=== PATIENT | female | born 1995 | race Caucasian/White ===

== ENCOUNTER 2021-01-03 21:48 | Emergency (ER) | payer MEDICAID, SELFPAY ==
[2021-01-03 21:50] VITALS: BP 159/86; PULSE 125; RESP 22; TEMP 36.2; O2SAT 93; BMI 31.0
--- NOTE | 2021-01-03 22:03 | ED.VIS.GEN ---
History of Present Illness Chief Complaint: Asthma Informant: Patient Onset: Yesterday Narrative: Worsening asthma since yesterday. She moved into a new apartment yesterday states there were cats there that aggravated this. States she is fine prior to moving in. She denies tobacco history. Denies cough. Denies fever. States ran out of her Ventolin called the pharmacy however they did not have the refill. She has been using her Symbicort multiple times. States feels tightness in her chest due to her asthma. Prior similar symptoms: Yes Past Medical History - Allergies and Home Meds Allergies/Adverse Reactions: Allergies CATS Allergy (Uncoded 01/03/21 21:49) Shortness of breath Past Medical History: - - Asthma Review of Systems General: Denies: Chills, Fever, Sweats Eyes: Denies: Visual changes - bilaterally, Diplopia ENT: Denies: Rhinorrhea, Sore throat Cardiovascular: Denies: Chest pain, Palpitations Respiratory: Reports: Dyspnea. Denies: Cough, Dyspnea on exertion Gastrointestinal: Denies: Abdominal pain, Nausea, Vomiting, Diarrhea, Melena, Hematochezia Genitourinary: Denies: Dysuria, Hematuria, Frequency Musculoskeletal: Denies: Back pain, Extremity Pain Skin: Denies: Rash, Wounds Neurological: Denies: Headache, Weakness, Numbness Physical Exam Vital Signs/Narrative: Vital Signs Temp Pulse Resp BP Pulse Ox 01/03/21 21:50 97.2 F L 125 H 22 H 159/86 H 93 General: Well nourished, Well developed, No Acute Distress Head: Normocephalic, Atraumatic Eyes: Perrl, EOMI ENT: Moist mucous membranes, No rhinorrhea Neck: Supple, Nontender Cardiovascular: Regular rhythm, No murmurs, Tachycardia Respiratory: Chest nontender, - - Diminished breath sounds at bases, no sensory muscle use. Abdomen: Soft, Nontender, Nondistended, Normal bowel sounds Back: Nontender, Normal Inspection Extremities: Nontender, No edema Skin: Normal color, No rash Neurological: Alert, Oriented x3, Cranial nerves II-XII grossly intact, Normal Strength, Normal Sensation Psychological: Normal affect, Normal Mood Diagnostic/Tx/Re-eval - Medical Decision Making Patient tachycardic on arrival pulse ox 93%. She is diminished breath sounds. Symptoms started after moving in to the new apartment. Denies fever cough or any other Covid symptoms. Should be treated with oral steroids nebulizer treatments and reevaluated. Patient signed out to evening physician to follow-up on patient's symptoms and vitals with plan discharge with rescue inhaler and burst steroids for 4 more days. ED Disposition - Plan for ED Patient: Diagnosis: Asthma exacerbation
[2021-01-03] MEDS: Ipratropium/Albuterol Sulfate 3 ML AMPUL.NEB INHALATION (22:04)
[2021-01-03 22:06] VITALS: PULSE 124; RESP 21
[2021-01-03] MEDS: Albuterol 2.5 MG/3 ML VIAL.NEB. INHALATION ×2 (22:28)
[2021-01-03] MEDS: predniSONE 20 MG Tablet 60 MG PO (22:29)
[2021-01-03 22:32] VITALS: O2SAT 94
[2021-01-03 22:34] VITALS: PULSE 119; RESP 15; O2SAT 100
--- NOTE | 2021-01-03 23:13 | ED.DCSUM_ITS ---
- ER Visit Summary Date of Service: 01/03/21 This patient was checked out to me with a period of observation pending after aerosols. Emergency Department Course and Treatment: On repeat exam patient reports that she feels much improved. She is moving air well. Her pulse ox is 100% on room air. She feels much improved and would like to go home. Treatment Plan: Patient will be discharged with an albuterol MDI. 5-day burst of prednisone. Instructed to follow-up with her primary care physician 1 to 2 days if not improving. Return to the emergency department for any worsening symptoms. Disposition: To home in improved and stable condition. Impression: 1. Asthma exacerbation. This note was generated with [employer] dictation software. It may contain incorrect words, spelling, and punctuation that were not noted in review of the chart prior to signing ED Disposition - Plan for ED Patient: Diagnosis: Asthma exacerbation Instructions: ED Asthma, Acute (Adult) Prescriptions: Prednisone [Deltasone] 40 mg PO DAILY #10 tablet Referrals: Doctor,Your [STAFF PHYSICIAN] - 1-2 Days if not improving
[2021-01-03 23:19] VITALS: BP 130/66; PULSE 111; RESP 18; O2SAT 100
== END 2021-01-03 23:22 | disposition home or self-care (01) ==
LOC: ED 23:20
PROVIDERS: Emergency Provider Emergency Medicine
DX: J45.901 Unspecified asthma with (acute) exacerbation (principal); Z79.51 Long term (current) use of inhaled steroids
CPT/HCPCS: 94640; 99284

== ENCOUNTER → 2021-02-06 09:53 | Outpatient (CLI) | payer MEDICAID, SELFPAY ==
[2021-02-06 11:51] LABS: Hemoglobin A1c 5.3 % (3.8-5.6)
[2021-02-06 11:59] LABS: Follicle Stimulating Hormone 5.4 mIU/mL; Luteinizing Hormone 9.3 mIU/mL; Prolactin 3.3 ng/mL; T4 Free Direct 1.06 ng/dL (0.76-1.46); Thyroid Stim Hormone (TSH) 0.59 uIU/mL (0.358-3.74)
[2021-02-10 03:07] LABS: DHEA Sulfate 77.3 ug/dL (110.0-431.7)
[2021-02-10 08:39] LABS: Testosterone Free 0.7 pg/mL (0.0-4.2)
== END ==
PROVIDERS: Visit Provider Student in an Organized Health Care Education/Training Program
DX: E28.2 Polycystic ovarian syndrome (principal); N92.6 Irregular menstruation, unspecified
CPT/HCPCS: 36415; 82627; 83001; 83002; 83036; 84146; 84402; 84439; 84443; 82626

== ENCOUNTER 2021-10-26 20:33 | Emergency (ER) | payer MEDICAID, SELFPAY ==
[2021-10-26 20:33] VITALS: BP 164/91; PULSE 120; RESP 20; TEMP 36.4; O2SAT 97; BMI 32.4
[2021-10-26 21:07] VITALS: PULSE 125; RESP 16
[2021-10-26] MEDS: Ipratropium/Albuterol Sulfate 3 ML AMPUL.NEB INHALATION (21:07)
[2021-10-26] MEDS: Albuterol 2.5 MG/3 ML VIAL.NEB. INHALATION (21:07)
[2021-10-26] MEDS: predniSONE 20 MG Tablet 60 MG PO (21:12)
--- NOTE | 2021-10-26 21:26 | CPS ---
x1 Albuterol given to pt. in ER as well
--- NOTE | 2021-10-26 21:30 | ED.VIS.DYS ---
HPI History of Present Illness Chief Complaint: Asthma Narrative Narrative: 26-year-old female with history of asthma presenting with shortness of breath. She states she had nasal congestion for over a month. Today she notes she has a mild sore throat and shortness of breath. She is been using her rescue inhaler and states this is not helping. She denies fever, chills, body aches, change in taste or smell. She has no known sick contacts. She denies chest pain. PFSH PFSH Home Medications albuterol sulfate 2 puff INHALATION Q4H PRN PRN 01/03/21 [History Last Taken Unknown] budesonide-formoterol 1 puff INHALATION BID 01/03/21 [History Last Taken Unknown] prednisone 40 mg PO DAILY #10 tab 01/03/21 [Rx Last Taken Unknown] prednisone 50 mg PO DAILY 5 Days #25 tab 10/26/21 [Rx Last Taken Unknown] Allergy/AdvReac Type Severity Reaction Status Date / Time CATS Allergy Shortness Uncoded 10/26/21 20:33 of breath Social History Smoking Status: Never smoker ROS ROS ED Constitutional Constitutional ED: Denies chills or fever(s) Eyes Eyes: Denies blurry vision ENT ENT ED: Reports sore throat and other Details: Nasal congestion Cardiovascular Cardiovascular: Denies chest pain or palpitations Respiratory/Chest Respiratory/Chest: Reports cough and dyspnea; Denies dyspnea on exertion or sputum Gastrointestinal Gastrointestinal: Denies abdominal pain, nausea or vomiting Genitourinary Genitourinary ED: Denies dysuria or hematuria Musculoskeletal Musculoskeletal: Denies arthralgias or myalgias Integumentary Denies rash Neurologic Neurologic: Denies headache(s) or paresthesias EXAM Physical Exam Const Vital Signs: 10/26/21 20:33 10/26/21 21:07 Temperature 97.6 F L Temperature Source Temporal Pulse Rate 120 H 125 H Respiratory Rate 20 H 16 Respiratory Pattern Normal Blood Pressure 164/91 H Blood Pressure Mean 115 Pulse Ox 97 Oxygen Delivery Method Room Air Positive well nourished General Appearance ED: NAD; Negative for pallor HEENT Reports moist mucous membranes atraumatic Eyes PERRL and EOMs intact bilaterally Resp normal respiratory effort and clear to auscultation bilaterally Cardio regular rhythm Rate: tachycardic Extremity normal to inspection General Extremety ED: Negative for edema or tenderness General Extremity: Negative for edema Neuro oriented x3 Sensorium / Orientation: alert Psych mental status grossly normal Thought Process: normal thought process Skin General Skin Exam: Negative for jaundice or pallor MDM MDM MDM Narrative Medical decision making narrative: Patient feels better after breathing treatments and she still has no wheezing. She would prefer to have prednisone as this is helped her in the past. I will provide this. She has an albuterol inhaler at home. Her Covid testing was negative here today. I do not believe this is viral syndrome as she only has a cough and congestion for a month without any other symptoms. Patient will be discharged home. He is given return precautions. Impression: 1. Cough Discharge Plan Triage Chief Complaint: Asthma ED Provider: Mingo Sapp Dx/Rx/DC Orders Instructions: ED Asthma, Acute (Adult) Prescriptions: New prednisone 10 mg tablet 50 mg PO DAILY 5 Days Qty: 25 RF: 0 No Action budesonide-formoterol 6 GM HFA aerosol inhaler 1 puff INHALATION BID RF: 0 albuterol sulfate 1 INHALER inhaler 2 puff INHALATION Q4H PRN PRN (Reason: Wheezing) RF: 0 prednisone 20 MG tablet 40 mg PO DAILY Qty: 10 RF: 0 Primary Care Provider: Angelica Medrano Referrals: Angelica Medrano CUTTER MACHINE TENDER-C [Primary Care Provider] - Disposition Disposition: Home, Self Care
[2021-10-26 23:04] VITALS: PULSE 98; RESP 18; O2SAT 96
== END 2021-10-26 23:05 | disposition home or self-care (01) ==
PROVIDERS: Emergency Provider Student in an Organized Health Care Education/Training Program; PCP Nurse Practitioner Family
DX: R05.9 Cough, unspecified (principal); Z79.51 Long term (current) use of inhaled steroids
CPT/HCPCS: 87426; 94640; 99251; 99283; G0463

== ENCOUNTER 2021-12-29 16:25 | Outpatient (CLI) | payer MEDICAID, SELFPAY ==
[2021-12-29 17:09] LABS: Prolactin 8.2 ng/mL
== END 2021-12-29 23:59 | disposition short-term general hospital (02) ==
LOC: WOBLAB 16:26
PROVIDERS: PCP Nurse Practitioner Family; Visit Provider Student in an Organized Health Care Education/Training Program
DX: N64.3 Galactorrhea not associated with childbirth (principal)
CPT/HCPCS: 36415; 84146

== ENCOUNTER 2022-01-09 09:32 | Outpatient (CLI) | payer MEDICAID, SELFPAY ==
[2022-01-09 11:07] LABS: hCG Titer Quant., Serum < 1 mIU/mL (1-3)
[2022-01-09 11:14] LABS: ALB/GLOB Ratio 0.8 RATIO (0.9-2.4); AST(SGOT) 13 U/L (15-37); Alanine Aminotransfer ALT/SGPT 17 U/L (13-56); Albumin, Serum 3.3 g/dL (3.2-5.0); Alkaline Phosphatase 81 U/L (45-117); Anion Gap 7 (5-15); BUN 10 mg/dL (7-18); BUN/Creat Ratio 14.5 RATIO (10-20); Calcium,Total 8.5 mg/dL (8.5-10.1); Chloride 107 mmol/L (98-107); Creatinine, Serum 0.69 mg/dL (0.55-1.02); EST Glomerular Filtration Rate 111 mL/min (>60); Est Glom Filt Rate - Afr Amer 134 mL/min (>60); Follicle Stimulating Hormone 2.4 mIU/mL; Free T3 2.4 pg/mL (2.18-3.98); Globulin 4.3 g/dL (2.2-4.2); Glucose 88 mg/dL (74-106); Luteinizing Hormone 10.3 mIU/mL; Protein, Total 7.6 g/dL (6.4-8.2); Sodium Level 139 mmol/L (136-145); T4 Free Direct 0.88 ng/dL (0.76-1.46)
== END 2022-01-09 23:59 | disposition home or self-care (01) ==
LOC: WOBLAB 09:33
PROVIDERS: PCP Nurse Practitioner Family; Visit Provider Student in an Organized Health Care Education/Training Program
DX: O92.6 Galactorrhea (principal)
CPT/HCPCS: 36415; 80053; 83001; 83002; 84439; 84443; 84481; 84702

== ENCOUNTER 2022-01-30 11:36 | Outpatient (CLI) | payer MEDICAID, SELFPAY ==
[2022-01-30 13:45] LABS: hCG Titer Quant., Serum < 1 mIU/mL (1-3)
== END 2022-01-30 23:59 | disposition home or self-care (01) ==
LOC: WOBLAB 11:37
PROVIDERS: PCP Nurse Practitioner Family; Visit Provider Student in an Organized Health Care Education/Training Program
DX: N91.1 Secondary amenorrhea (principal)
CPT/HCPCS: 36415; 84702

== ENCOUNTER 2022-02-13 09:47 | Outpatient (CLI) | payer MEDICAID, SELFPAY ==
--- NOTE | 2022-02-13 09:53 | US_ITS ---
STUDY: ULTRASOUND BREAST - RIGHT REASON FOR EXAM: Female, 26 years old. Nipple discharge TECHNIQUE: Axial and longitudinal images of the RIGHT breast were performed with a high resolution ultrasound transducer. # OF IMAGES: 60 COMPARISON: None. FINDINGS: RIGHT Breast: Multiple longitudinal and transverse ultrasound images of the retroareolar right breast failed to demonstrate a discrete solid or cystic mass or dilated ducts.: IMPRESSION: Normal right breast ultrasound ASSESSMENT CATEGORY: BIRADS Category 1: Negative. A letter regarding these results will be sent to the patient by the facility within 30 days. Electronically Signed: Nick Gallegos MD at 13:25 EDT , STUDY: ULTRASOUND BREAST - LEFT REASON FOR EXAM: Female, 26 years old. Nipple discharge TECHNIQUE: Axial and longitudinal images of the LEFT breast were performed with a high resolution ultrasound transducer. # OF IMAGES: 60 COMPARISON: None. FINDINGS: LEFT Breast: Heterogeneous background echotexture. Multiple longitudinal and transverse ultrasound images of the retroareolar left breast failed to demonstrate a discrete solid or cystic mass. At 12 o''clock, 2 cm from nipple, ultrasound confirms a 4 mm oval parallel circumscribed anechoic mass with posterior enhancement consistent with a cyst.: US/Breast Limited Unilateral IMPRESSION: Ultrasound confirms a 4 mm cyst. ASSESSMENT CATEGORY: BIRADS Category 2: Benign. A letter regarding these results will be sent to the patient by the facility within 30 days. Electronically Signed: Nick Gallegos MD at 13:26 EDT ,
== END 2022-02-13 23:59 | disposition home or self-care (01) ==
PROVIDERS: PCP Nurse Practitioner Family; Visit Provider Student in an Organized Health Care Education/Training Program
DX: O92.6 Galactorrhea (principal)
CPT/HCPCS: 76642

== ENCOUNTER → 2022-04-26 | Outpatient (CLI) | payer MEDICAID, SELFPAY ==
[2022-04-26 12:02] LABS: hCG Titer Quant., Serum < 1 mIU/mL (1-3)
[2022-04-27 15:16] LABS: Cancer Antigen 125 34.6 U/mL (0.0-38.1); Carbohydrate Ag 19-9 2261 6 U/mL (0-35); Carcinoembryonic Antigen 0.7 ng/mL (0.0-4.7)
== END | disposition home or self-care (01) ==
PROVIDERS: PCP Nurse Practitioner Family; Visit Provider Student in an Organized Health Care Education/Training Program
DX: N83.209 Unspecified ovarian cyst, unspecified side (principal)
CPT/HCPCS: 36415; 82378; 84702; 86301; 86304

== ENCOUNTER 2022-06-21 05:40 | Day surgery (SDC) | payer MEDICAID, SELFPAY ==
[2022-06-14 16:34] LABS: Hematocrit 37.4 % (37-47); Mean Corp Hgb Conc 32.1 g/dL (32-36); Mean Corpuscular Hgb 27.8 pg (27.0-32.0); Mean Corpuscular Volume 86.6 fL (81-99); Mean Platelet Vol. 9.8 fl (6.2-12.0); Platelet Count 380 K/mm3 (150-450); RBC Distribution Width CV 14.3 % (11.6-14.6); RBC Distribution Width SD 45.3 fl (35.1-43.9); Red Blood Count 4.32 M/mm3 (4.2-5.4); White Blood Count 7.1 K/mm3 (4.4-11.0)
[2022-06-21] VITALS (9 sets, daily range): BP systolic 107–142; BP diastolic 49–80; PULSE 84–114; RESP 16–18; TEMP 35.8–37.4; O2SAT 96–100; BMI 31.8
[2022-06-21 06:44] LABS: Internal QC Validated? YES +Cl - CLEAR BKGD; Pregnancy, Urine Negative Negative
[2022-06-21] MEDS: Lactated Ringers 1,000 ML 125 ML IV ×2 (06:48→10:41)
--- NOTE | 2022-06-21 07:03 | PCM.HP.BLA ---
History and Physical Date of Admission: 06/21/22 HPI: 26 you female with secondary amenorrhea and pelvic pain, history of cysts. ALLERGIES: No Known Allergies MEDICATIONS HISTORY: Current medications prescribed by our practice are: 1. Provera 10 mg tablet, 1 tab once daily for 10 days Patient is also takin. Symbicort 80 mcg-4.5 mcg/actuation HFA aerosol inhaler, 2 puffs 2 x day 2. Ventolin HFA 90 mcg/actuation aerosol inhaler, 1 to 2 puffs as needed PAST HISTORY: Breast/Ovarian/Colon Cancers - Denies Infections - Varicella Vaccine Illnesses - PCOS Accidents - no injuries of consequence History of Abnormal PAPS - NO Hospitalizations - see surgery Depression; SURGICAL HISTORY: 1. Appendectomy, R Ovarian Cyst 2018 2. R Ovarian Cyst, 2016 PAST PREGNANCIES: Total Pregnancies - 2; Full Term Pregnancies - 1; Premature - 0; Abortions, Induced - 0; Abortions, Spontaneous - 1; Ectopics - 0; Multiple Births - 0; Living Children - 1 FAMILY HISTORY: noncontributory SOCIAL HISTORY: Alcohol Use - denies drinking Smoking - denies smoking Drug Use - denies REVIEW OF SYSTEMS: GENERAL - Denies fever, or chills SKIN - Denies skin changes EYES - Denies visual changes EARS - Denies difficulty hearing NOSE - Denies nasal congestion or bleeding MOUTH - Denies sore throat or difficulty swallowing NECK - Denies pain or swelling RESPIRATORY - Denies shortness of breath or wheezing CARDIOVASCULAR - Denies palpitations or chest pain GASTROINTESTINAL - Denies nausea, vomiting, diarrhea, constipation GENITOURINARY - Denies dysuria, frequency of urination, incontinence of urine MUSCULOSKELETAL - Denies joint or muscle pain NEUROLOGICAL - Denies localized numbness or weakness PSYCHIATRIC - Denies depression or anxiety ENDOCRINE - Denies heat or cold intolerance, weight loss or gain HEMATO-IMMUNOLOGIC - Denies excesive bleeding with cuts PHYSICAL EXAMINATION BP- 108/82 Sitting, Right arm, large cuff Weight- 212.0 lbs Height- [id number] inch BMI:31.69 CONSTITUTIONAL - NAD, well nourished, and well developed SKIN - No rash, lesions, or ulcers HEENT - Normocephalic, PERRLA, EOMI LUNGS - CTA x2 without wheezes, crackles or rales CARDIAC - Regular rate and rhythm without rubs, murmurs, or gallops EXTREMITIES - No edema or calf tenderness NEUROLOGICAL - Cranial nerves II-XII grossly intact PSYCHIATRIC - A and O to time, place, person, mood and affect ASSESSMENT/PLAN BY DIAGNOSIS: Other Ovarian Cysts and Secondary Amenorrhea Continued amenorrhea. Had small discharge after progesterone withdrawl. and Some spotting. Pt having pelvic pain at this time. Plan for: hysteroscopy d+c, possible symphion, laparoscopic right ovarian cystectomy, posssible oophorectomy. R/B/A discussed: risks include, but are not limited to: risk of bleeding to the point of transfusion, injury to surrounding tissue (bowel/bladder/major vessels/uterine perforation), VTE, ICU admission and Consents signed
--- NOTE | 2022-06-21 07:30 | EMB_PTH ---
PATIENT: MAC LOVE LOC: [facility] [place] U#:[id number] AGE/SX: ROOM: RE06/21/[address]: Dr. Maricel Hurst, : 1995 BED: DIS: 06/21/2022 SPEC #: [id number] RECD: 06/21/22 13:18 STATUS: TIERA REDelmis #: [id number] CIARA: 06/21/22 07:[address]: Maricel Hurst DEPT: SURGICAL PATHOLOGY RECD BY: Malini Rowell ENTERED: 06/22/22 08:11 SP TYPE: ENDOM BX/C JESENIA DR: Angelica Medrano, TERRI Tissues: Endometrium, NOS Procedures: Surgery Specimen Level IV HEADER OPERATION: Hysteroscopy, D & C PRE-OP DIAGNOSIS: Secondary amenorrhea, history of cysts, pelvic pain TISSUE SUBMITTED: Endometrial curettings MICROSCOPIC DIAGNOSIS Endometrium, curettings: Mildly disordered proliferative endometrium. AM:americo 06/25/2022 MICROSCOPIC DESCRIPTION Slides are reviewed. GROSS DESCRIPTION Received in fixative is one container labeled with the patient's name and designated endometrial curettings. The specimen consists of multiple irregular fragments of light to dark weldon soft tissue that in aggregate measure 2.2 x 2 x 0.2 cm. The specimen is totally submitted in one cassette. / AM:americo 06/22/2022 TC:5 CPT: 23443
--- NOTE | 2022-06-21 07:37 | OP.PCM_ITS ---
Report of Operation Date of Procedure: 06/21/22 Pre-Operative Diagnosis: Secondary amenorrhea, pelvic pain, history of ovarian cyst. Post-Operative Diagnosis: Secondary amenorrhea, pelvic pain, history of ovarian cyst, bowel adhesions, endometriosis. Surgery/Procedure Performed:: Hysteroscopy, dilation and curettage. Laparoscopic lysis of adhesions, fulguration of endometriosis. Description of Surgical Findings:: Normal-appearing external genitalia. Moderate uterine descensus. No uterine intracavitary lesions/polyps/fibroids. Thickened posterior lining. On laparoscopy: No ovarian cyst. Increased pelvic vasculature. Filmy colonic adhesions to right pelvic sidewall. 3 powder burn endometriotic lesions 1 in right cul-de-sac, 2 on ovary. Right ovarian adhesions to itself. Right ovary. Elongated and adhesed together at each end, fallopian tube adhesions to ovary. Type of Anesthesia: General Specimen's removed: Endometrial curettings Estimated Blood Loss (mL): 5cc Fluids Replaced: 600cc Description of Procedure: Indication/risk/benefits: 26-year-old female with secondary amenorrhea, history of ovarian cyst, pelvic pain. Presenting for hysteroscopy, dilation and curettage, laparoscopic right ovarian cystectomy and possible right oophorectomy. All risk, benefits, alternatives were discussed with the patient. Risks include but are not limited to: Risk of bleeding to the point transfusion, infection, injury to surrounding tissue including bowel/bladder/major abdominal vessels, VTE, ICU admission. Patient aware and consented. Procedure: Patient taken to the operating room and placed under general anesthesia. Patient placed in the dorsal lithotomy position and prepped and draped in the usual sterile fashion. Weighted speculum placed in the posterior vagina and Hung retractor used to visualize cervix. Anterior lip of the cervix grasped with Allis clamp. Cervix sequentially dilated. Hysteroscope placed through cervical canal and inspection of endometrial cavity completed as described above. Curettage completed in a 360 degree manner. Uterine manipulat or placed. Allis clamp removed. Larose catheter placed. Gloves were changed and attention turned to the anterior abdominal wall. 5 mm horizontal infraumbilical incision made with scalpel. 5 mm trocar placed under direct visualization. Abdomen insufflated. Left lower quadrant incision made with scalpel and 5 mm trocar placed. Inspection of the abdominal cavity and pelvis completed. Adhesions of colon to right sidewall noted as above, filmy adhesions lysed with use of scissors. Freeing the colon away from the sidewall. Right cul-de-sac/pelvic endometriotic implant grasped, pulled away from the sidewall, fulgurated with monopolar cautery. The 2 endometriotic implants on the right ovary were grasped and fulgurated in a similar fashion. Ovarian adhesions from lysed with scissors. Fallopian tube and fimbria a adhesions to ovary were lysed with scissors. Slight oozing noted, use of monopolar cautery in 1 region. Chin placed over this region of the fallopian tube and ovary. Hemostatic. Insufflation pressure decreased, continue to be hemostatic in the area. Insufflation stopped, trochars removed. Skin incision closed with subcuticular stitch and skin glue. Uterine manipulator removed and Larose catheter removed. At the end of the procedure all needle, lap, sponge counts correct x3. UOP: 50cc Complications none
--- NOTE | 2022-06-21 08:34 | DCINST_ITS ---
Discharge Instructions Diet Discharge Diet: No restrictions Activity Discharge Activity: Return to Normal Activity and May Shower May resume sexual activity in: 2 weeks Weight Bearing Status: Weight bearing as tolerated Lifting Restrictions: No greater than 25 pounds Dressing / Incision Call your doctor if your incision/area has: Continuous Slow Oozing, Sudden Increased Bleeding, Increased Pain/ Swelling and Swelling at the incision site Call your doctor if you observe: Fever of 101 or Higher, Change in Color, Inability to urinate, Using more than 1 pad per hour, Shortness of breath, Dizziness, Swelling in the ankles, Chest pain and Calf discomfort Cleanse incision/area with: Soap & Water and Keep Dressing Clean & Dry Follow Up Care Please Follow Up With: Maricel Hurst DO When: 1-2 week postoperative visit Test Results: Test results from this visit will be discussed in further detail at your follow- up appointment, if applicable. Discharge Plan Admission Primary Reason for Your Visit: D&C, laparoscopy Attending Provider: Maricel Hurst Primary Care Provider: Angelica Medrano Discharge Orders/Prescriptions Prescriptions: New oxycodone 5 mg tablet 5 mg PO Q6H PRN (Reason: pain) 4 Days Qty: 10 0RF Continued budesonide-formoterol 6 GM HFA aerosol inhaler 1 puff INHALATION BID albuterol sulfate 1 INHALER inhaler 2 puff INHALATION Q4H PRN PRN (Reason: Wheezing) Referrals / Follow Up: Angelica Medrano, ALISA-C [Primary Care Provider] - Disposition Disposition (needs filled in before D/C Order can be placed): Home, Self Care
[2022-06-21] MEDS: HYDROcodone Bitartrate/Apap 5/325 Tablet PO (09:50)
[2022-06-21] MEDS: DiphenhydrAMINE 50 MG/ML Syringe 12.5 MG IV (13:05)
[2022-06-21] MEDS: Metoclopramide 10 MG/2 ML Vial IV (13:06)
== END 2022-06-21 15:10 | disposition home or self-care (01) ==
LOC: SDC 05:40 → AC 05:41
PROVIDERS: Anesthesiology; PCP Nurse Practitioner Family; Referring Provider Student in an Organized Health Care Education/Training Program; Visit Provider Student in an Organized Health Care Education/Training Program
PROC: 0UB98ZZ Excision of Uterus, Via Natural or Artificial Opening Endoscopic (ICD-10-PCS; CPT 58558; principal; 2022-06-21 07:15)
PROC: (CPT 58720; 2022-06-21 07:15)
DX: N85.8 Other specified noninflammatory disorders of uterus (principal); N91.1 Secondary amenorrhea; J45.909 Unspecified asthma, uncomplicated
CPT/HCPCS: 58558; 00952; 36415; 81025; 85027; 86850; 86900; 86901; 88305; J7120; J2405

== ENCOUNTER 2023-03-21 12:14 | Emergency (ER) | payer MEDICAID, SELFPAY ==
[2023-03-21 12:15] VITALS: BP 145/87; PULSE 145; RESP 16; TEMP 36.3; O2SAT 97; BMI 28.6
--- NOTE | 2023-03-21 13:07 | EX.ED.DYSGE1 ---
HPI History of Present Illness Chief Complaint: General Illness Informant: patient Narrative Narrative: Patient states she may have had nasal congestion for about a day. But basically she is here for sore throat. The sore throat started about 3 days ago. It is just slowly increased. She has had fevers at home over 102. She is not coughing when I ask her. She is not short of breath. She has had strep but not for a long time. She has a history of asthma but is not having any wheezing or breathing problems. She is still eating and drinking. She states she is probably drinking less than she should. She is also had a fever but just started with some Tylenol. She also tried some [id number] TheraFlu type medicine. She is not having nausea vomiting or abdominal pain. No urinary symptoms. PFSH PFS Medical History Alcohol use Asthma Gastric reflux History of echocardiogram History of steroid therapy Hx of ovarian cyst Migraine headache Home Medications albuterol sulfate 90 mcg/actuation aerosol inhaler 2 puff inhalation Q4H PRN PRN Wheezing 01/03/21 [History Last Taken 06/14/22] budesonide-formoterol HFA 160 mcg-4.5 mcg/actuation aerosol inhaler 1 puff inhalation BID 01/03/21 [History Last Taken Unknown] ondansetron 4 mg disintegrating tablet 4 mg PO Q6H PRN nausea and vomiting #30 tabs 06/21/22 [Rx Last Taken Unknown] oxycodone 5 mg tablet 5 mg PO Q6H PRN pain 4 days #10 tabs 06/21/22 [Rx Last Taken Unknown] promethazine 12.5 mg tablet 12.5 mg PO Q6H PRN nausea and vomiting #30 tabs 06/21/22 [Rx Last Taken Unknown] penicillin V potassium 250 mg tablet 500 mg PO 4X/DAY #40 tabs 03/21/23 [Rx Last Taken Unknown] Allergy/AdvReac Type Severity Reaction Status Date / Time cat dander Allergy Shortness Verified 03/21/23 12:17 of breath Surgical History Hx of appendectomy Social History Smoking Status: Never smoker ROS ROS ED Constitutional Constitutional ED: Reports chills and fever(s) Eyes Eyes: Denies diplopia ENT ENT ED: Reports sore throat; Denies ear pain or rhinorrhea Cardiovascular Cardiovascular: Denies chest pain Respiratory/Chest Respiratory/Chest: Denies cough or dyspnea Gastrointestinal Gastrointestinal: Denies nausea or vomiting Genitourinary Genitourinary ED: Denies hematuria or urinary frequency Musculoskeletal Musculoskeletal: Denies myalgias Integumentary Denies rash Neurologic Neurologic: Denies headache(s) or paresthesias Hematologic/Lymphatic Hematologic/Lymphatic: Denies easy bleeding or easy bruising Allergic/Immunologic Allergic/Immunologic ED: Denies urticaria EXAM Physical Exam Narrative Exam Narrative: Patient awake alert nontoxic in the room. She does have a slightly altered voice from baseline but she handles her secretions just fine. HEENT does show some erythema and slight exudate on the tonsils on both sides. They are not significantly enlarged but are just mildly large. They are nowhere near touching. No asymmetry. No indication that I would want to do CT looking for abscess. Neck: She does have anterior cervical lymphadenopathy. This is on both sides but a little bit more on the right. Eyes show no icterus Lungs are completely clear. No wheezing at all. Heart is regular but is tachycardic. She is about 120 now although she was much higher in triage. She does not have any sense of this. It sounds quite regular also. Peripheral pulses are equal and match. Abdomen is soft nontender There is no peripheral edema or cords. Const Vital Signs: 03/21/23 12:15 03/21/23 12:26 Temperature 97.4 F L Temperature Source Temporal Pulse Rate 145 H Respiratory Rate 16 Respiratory Effort Normal Blood Pressure 145/87 H Blood Pressure Mean 106 Pulse Ox 97 Oxygen Delivery Method Room Air MDM MDM MDM Narrative Medical decision making narrative: I discussed the heart rate with the patient. I think this is likely due to fever decreased p.o. intake and some of the [id number] meds that may be stimulating this. We discussed the option of further work-up and IV fluids but she is comfortable just drinking fluids cutting out the TheraFlu since she is totally asymptomatic with this rate. I think that is a reasonable option. With her exudate, sore throat, fever, lymphadenopathy, lack of congestion and cough I will treat her as presumed strep. We discussed reasons to return. Discharge Plan Triage Chief Complaint: General Illness ED Provider: Ed Morales Dx/Rx/DC Orders Clinical Impression: Acute streptococcal pharyngitis Instructions: ED Pharyngitis, Strep (Presumed) Prescriptions: New penicillin V potassium 250 mg tablet 500 mg PO 4X/DAY Qty: 40 0RF No Action budesonide-formoterol 6 GM HFA aerosol inhaler 1 puff INHALATION BID albuterol sulfate 1 INHALER inhaler 2 puff INHALATION Q4H PRN PRN (Reason: Wheezing) oxycodone 5 mg tablet 5 mg PO Q6H PRN (Reason: pain) 4 Days Qty: 10 0RF ondansetron 4 mg tablet,disintegrating 4 mg PO Q6H PRN (Reason: nausea and vomiting) Qty: 30 0RF promethazine 12.5 mg tablet 12.5 mg PO Q6H PRN (Reason: nausea and vomiting) Qty: 30 0RF Primary Care Provider: Care Physician,No Primary Referrals: Fernando Vazquez MD [Med Staff - Medical Imaging Technologist] - 3-5 Days Care Physician,No Primary [Primary Care Provider] - Activity Restrictions/Additional Instructions: Follow-up with your primary physician or referral as above if not better in a few days. Disposition Disposition: Home, Self Care
--- NOTE | 2023-03-21 13:26 | CM.ED ---
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 Patient was seated on hospital bed and agreeable to speak with SW. SW inquired about patient's insurance and current PCP. Patient verified insurance and reports recently establishing with a PCP but is unable to recall their name. Patient declined a list of local PCPs in network with patient's insurance and accepting new patients. Patient voiced no other needs at this time. SW remains available if needs arise. Cassie Sanchez MANAGER COMMUNICATION, MARY ALICE
== END 2023-03-21 13:34 | disposition home or self-care (01) ==
PROVIDERS: Emergency Provider Emergency Medicine; Visit Provider Emergency Medicine
DX: J02.0 Streptococcal pharyngitis (principal); R59.9 Enlarged lymph nodes, unspecified; J45.909 Unspecified asthma, uncomplicated
CPT/HCPCS: 99282

== ENCOUNTER 2023-05-16 13:10 | Emergency (ER) | payer MEDICAID, SELFPAY ==
[2023-05-16 13:13] VITALS: BP 145/86; PULSE 102; RESP 18; TEMP 36.4; O2SAT 100
--- NOTE | 2023-05-16 13:24 | RAD_ITS ---
STUDY: X-RAY - RIGHT FOOT CLINICAL: Female, 27 years old. Patient dropped a 45 pound plate on the foot. Bruising. TECHNIQUE: 3 view(s) of the foot. COMPARISON: None. FINDINGS: Normal talus, calcaneus, and tarsal bones. Normal visualized subtalar, talonavicular, calcaneocuboid, tarsal and tarsometatarsal articulations. Normal metatarsi. Normal metatarsophalangeal joint of the great toe. Normal tibial and fibular sesamoid bones. Normal interphalangeal joint of the great toe. Normal phalanges of the great toe. Normal second through fifth metatarsophalangeal joints. Normal interphalangeal joints and phalanges of the lesser toes. The soft tissue structures are unremarkable. RAD/Foot min 3 Views IMPRESSION: Normal x-ray examination of the foot. Electronically Signed: Kail Whitley MD at 13:47 EDT ,
--- NOTE | 2023-05-16 14:05 | EDS_ITS ---
HPI <TERRI Aguillon - Last Filed: 05/16/23 14:10> History of Present Illness Chief Complaint: Lower Extremity Injury Narrative Narrative: Patient is a 27-year-old female with history of asthma who presents to the emergency department with right foot injury. Patient was at the weight room, when she slid off a 45 pound weight from her mid thigh, machine. The 45 pound weight then fell on her right foot. Patient states that this did cause initial pain. Over the last 2 hours, is got more swollen, more ecchymotic, the patient is having more pain. Patient is concerned that she might of broke her foot. PFSH <TERRI Aguillon - Last Filed: 05/16/23 14:10> [facility] Medical History Alcohol use Asthma Gastric reflux History of echocardiogram History of steroid therapy Hx of ovarian cyst Migraine headache Home Medications albuterol sulfate 90 mcg/actuation aerosol inhaler 2 puff inhalation Q4H PRN PRN Wheezing 01/03/21 [History Last Taken 06/14/22] budesonide-formoterol HFA 160 mcg-4.5 mcg/actuation aerosol inhaler 1 puff inhalation BID 01/03/21 [History Last Taken Unknown] ondansetron 4 mg disintegrating tablet 4 mg PO Q6H PRN nausea and vomiting #30 tabs 06/21/22 [Rx Last Taken Unknown] oxycodone 5 mg tablet 5 mg PO Q6H PRN pain 4 days #10 tabs 06/21/22 [Rx Last Taken Unknown] promethazine 12.5 mg tablet 12.5 mg PO Q6H PRN nausea and vomiting #30 tabs 06/21/22 [Rx Last Taken Unknown] penicillin V potassium 250 mg tablet 500 mg PO 4X/DAY #40 tabs 03/21/23 [Rx Last Taken Unknown] Allergy/AdvReac Type Severity Reaction Status Date / Time cat dander Allergy Shortness Verified 03/21/23 12:17 of breath Surgical History Hx of appendectomy Social History Smoking Status: Never smoker ROS <TERRI Aguillon - Last Filed: 05/16/23 14:10> ROS ED ROS Narrative Constitutional: Negative for fever, chills, weight loss, weakness Eyes: Negative for vision loss, vision change, double vision ENT: Negative for any sore throat, ear pain, congestion Cardiovascular: Negative for any chest pain, tightness, palpitations Respiratory: Negative for any cough, sputum production, hemoptysis, dyspnea, dyspnea on exertion, orthopnea Gastrointestinal: Negative for any abdominal pain, nausea, vomiting, diarrhea, constipation, blood in stool, blood in vomit : Negative for any urinary frequency, dysuria, retention, blood in urine Muscle skeletal: Negative for any muscle joint pain, stiffness, myalgias, arthralgias, neck pain, back pain. Positive right foot pain Neurological: Negative for any headache, syncope, numbness or tingling, dizziness Skin: Negative for any rashes, lumps, itching, abrasions, lacerations Psychiatric: Negative for any depression, anxiety, stress, suicidal ideation, homicidal ideation Hematologic: Negative for any easy bruising, excessive bruising, easy bleeding Allergies: Negative for any eczema, hives, rash EXAM <TERRI Aguillon - Last Filed: 05/16/23 14:10> Physical Exam Narrative Exam Narrative: Vital signs reviewed. Extremities: No peripheral edema, no signs of gross trauma or deformity. Active full range of motion of all extremities. Patient does have some dorsal swelling, ecchymosis to the top of the right foot. +2 pedal pulse. Patient is have pain on palpation. Patient is able move all her toes. No pain to the lateral and medial malleolus. Patient is ambulatory Neuro: Cranial nerves II through XII intact, no focal neurological deficits. Skin: Clean dry and intact with no rash, purpura, petechiae, vesicles or pustules. Backs/flank: No CVA tenderness, no midline spinal tenderness, no deformity. Psych: Normal mood and affect. No SI, HI or acute psychosis. Const Vital Signs: 05/16/23 13:13 Temperature 97.5 F L Temperature Source Temporal Pulse Rate 102 H Respiratory Rate 18 Blood Pressure 145/86 H Blood Pressure Mean 105 Pulse Ox 100 Oxygen Delivery Method Room Air Positive well nourished and well developed General Appearance ED: well developed <Dr. Robert Hennessy MD - Last Filed: 05/16/23 14:44> Physical Exam Const Vital Signs: 05/16/23 13:13 Temperature 97.5 F L Temperature Source Temporal Pulse Rate 102 H Respiratory Rate 18 Blood Pressure 145/86 H Blood Pressure Mean 105 Pulse Ox 100 Oxygen Delivery Method Room Air [facility] <Mauricio TuckerTERRI - Last Filed: 05/16/23 14:10> [facility] Radiography Diagnostic Testing: Clinical Impression(s) from Imaging Studies Foot X-Ray 05/16/23 13:24 IMPRESSION: Normal x-ray examination of the foot. Electronically Signed: Kali Whitley MD at 13:47 EDT , Treatment and Re-Evaluation :: All radiologic examinations were read, reviewed by the emergency department attending. From these reads, a plan of care will be put in place. Patient appears well, patient appears nontoxic, vital signs are stable. Patient pre sents to the emergency department with right foot injury after dropping a weight on the foot prior to arrival. Patient did receive x-rays of the right foot, this showed no acute process of the right foot. There are some soft tissue swelling. Patient will take [id number] ibuprofen, Tylenol. She was instructed to ice, elevate. She is instructed to wear well fitting shoes and to follow-up outpatient. At this time, patient is stable for discharge <Dr. Robert Hennessy MD - Last Filed: 05/16/23 14:44> [facility] Narrative Medical decision making narrative: I have personally performed a face to face assessment of the patient and have reviewed the REGINALDO Note. I performed a substantive portion of the visit including all aspects of the following. My hines findings include: History is remarkable for dropping a 25 pound weight on her right foot. She presents with swelling and bruising. She complains of pain with walking. Denies paresthesia, anesthesia or motor EXTR Exam is soft tissue swelling with bruising. There is pain ovation over the metatarsal bones. There is no pain ovation over the lateral medial malleolus. There is no pain ovation of the calcaneus. There is no pain ovation over the toes. There is no subungual hematoma noted of the toes. DP and PT pulse are palpable. Medical Decision Making x-ray was obtained to evaluate for fracture versus contusion. Three-view x-ray of the foot was independent reviewed interpreted by me as negative. Other additions or changes: [None] Radiography Diagnostic Testing: Clinical Impression(s) from Imaging Studies Foot X-Ray 05/16/23 13:24 IMPRESSION: Normal x-ray examination of the foot. Electronically Signed: Kali Whitley MD at 13:47 EDT , Discharge Plan Triage Chief Complaint: Lower Extremity Injury ED Midlevel Provider: Mauricio Tucker ED Provider: Robert Hennessy Dx/Rx/DC Orders Clinical Impression: Contusion of foot Instructions: Bruises (Contusions), ED Foot Contusion Prescriptions: No Action budesonide-formoterol 6 GM HFA aerosol inhaler 1 puff INHALATION BID albuterol sulfate 1 INHALER inhaler 2 puff INHALATION Q4H PRN PRN (Reason: Wheezing) oxycodone 5 mg tablet 5 mg PO Q6H PRN (Reason: pain) 4 Days Qty: 10 0RF ondansetron 4 mg tablet,disintegrating 4 mg PO Q6H PRN (Reason: nausea and vomiting) Qty: 30 0RF promethazine 12.5 mg tablet 12.5 mg PO Q6H PRN (Reason: nausea and vomiting) Qty: 30 0RF penicillin V potassium 250 mg tablet 500 mg PO 4X/DAY Qty: 40 0RF Primary Care Provider: Care Physician,No Primary Referrals: Mk Be DPM [Med Staff - Active Staff] - Care Physician,No Primary [Primary Care Provider] - Activity Restrictions/Additional Instructions: Ensure that you ice and elevate Disposition Disposition: Home, Self Care Discharge Date/Time: 05/16/23 14:22
== END 2023-05-16 14:22 | disposition home or self-care (01) ==
PROVIDERS: Emergency Provider Emergency Medicine; Visit Provider Emergency Medicine
DX: S90.31XA Contusion of right foot, initial encounter (principal); J45.909 Unspecified asthma, uncomplicated; W22.8XXA Striking against or struck by other objects, initial encounter
CPT/HCPCS: 73630; 99282

== ENCOUNTER 2025-09-13 10:02 | Emergency (ER) | payer MEDICAID, SELFPAY ==
[2025-09-13 10:03] VITALS: BP 140/87; PULSE 102; RESP 18; TEMP 36.7; O2SAT 100; BMI 25.4
--- NOTE | 2025-09-13 11:37 | CT_ITS ---
PROCEDURE: BRAIN/HEAD WITHOUT CONTRAST 09/13/2025 REASON FOR EXAM: RULE OUT MASS, BLEED History of headaches. TECHNIQUE: Procedure Code: CTBR Modality: CT Procedure: BRAIN/HEAD WITHOUT CONTRAST Coronal and Sagittal reconstruction series were provided. One or more dose reduction techniques were used (e.g., Automated exposure control, adjustment of the mA and/or kV according to patient size, use of iterative reconstruction technique. RADIATION DOSE SUMMARY: CTDlvol: 44.99 mGy DLP: 728.62 mGycm COMPARISON: None FINDINGS: Brain: Normal CSF Spaces: Normal Sinuses/Mastoids: Tiny polyps or retention cysts in the anterior inferior aspect of both maxillary sinuses. Bones: Unremarkable CT/Brain/Head without Contrast IMPRESSION: NO ACUTE FINDINGS Reading Location: [place] [id number]
[2025-09-13] MEDS: 0.9% Normal Saline (1000mL) 1,000 ML 1000 ML IV (12:03)
[2025-09-13] MEDS: DiphenhydrAMINE 50 MG/ML Syringe 25 MG IV (12:03)
--- NOTE | 2025-09-13 12:47 | EDS_ITS ---
HPI History of Present Illness Chief Complaint: Headache Narrative Narrative: Patient is a 30-year-old female presenting to the emergency department for a migraine. Patient states that she woke up around 4 AM due to her child and noticed that she had a migraine. She describes it gradually worsening after it started. Describes it as a pressure sensation. She states that her usual migraines are either just on the right side or just on the left side but this 1 is all over. She endorses photophobia which is common with her migraine she states. She did take triptans and Excedrin prior to coming with no improvement in her symptoms. She denies any fevers or neck pain. Denies any visual changes other than the photophobia, slurred speech, numbness or weakness in her extremities. Denies any recent trauma to her head or any falls. States she does not think she has ever had any imaging of her head done. [facility] Medical History Non-smoker Alcohol use History of steroid therapy Migraine headache Gastric reflux Asthma History of echocardiogram Hx of ovarian cyst Home Medications ?Medication ?Instructions ?Recorded ?Last Taken ?Type ibipvpo-reavdsrrqixgl-tzideeau 250 2 tab PO Q6H PRN pa in 09/13/25 09/13/25 History mg-250 mg-65 mg tablet (Excedrin Migraine) sumatriptan succinate 50 mg tablet 50 mg PO .COMPLEX 1 09/13/25 History Allergy/AdvReac Type Severity Reaction Status Date / Time cat dander Allergy Shortness Verified 09/13/25 10:02 of breath Surgical History Hx of appendectomy Social History Smoking Status: Never smoker ROS ROS ED ROS Narrative see HPI EXAM Physical Exam Narrative Exam Narrative: Vital signs: Reviewed General: Alert and oriented x 3. No acute distress HEENT: Head is normocephalic and atraumatic, sinuses nontender, pupils 2 mm equal round and reactive. Nares are patent. Oropharynx and throat exams normal. Neck: Supple without lymphadenopathy nontender. No nuchal rigidity. Full active range of motion of the neck with flexion and extension. Cardiovascular: Regular rate and rhythm, no murmurs. No rubs or gallops. Normal S1 and S2 Respiratory: Clear to auscultation bilaterally. No wheezes, rales, rhonchi Abdominal: Soft and nontender. Normal bowel sounds. No guarding or rebound. Nonsurgical abdomen Extremities: No tenderness. No bruising. Normal range of motion. Normal sensation. Skin: No rash or redness. Neurological: Cranial nerves II through XII are grossly intact. Normal strength and sensation. Normal cerebellar function The rest of the physical exam is unremarkable Const Vital Signs: 09/13/25 10:03 Temperature 98.1 F Temperature Source Oral Pulse Rate 102 H Respiratory Rate 18 Blood Pressure 140/87 H Blood Pressure Mean 104 Pulse Ox 100 Oxygen Delivery Method Room Air MDM MDM MDM Narrative Medical decision making narrative: Patient is a 30-year-old female presenting to the emergency department for a headache. Patient was seen and examined. Vitals are stable. Patient resting in bed comfortably no acute distress. Differential includes but is not limited to: Migraine, tension headache, less likely intracranial mass, subarachnoid, intracranial bleed, meningitis or encephalitis. Migraine cocktail including fluids, Benadryl and Compazine given. Patient has never had a CT of the brain done reportedly and I see nothing in my chart review of a CT brain. Will order 1 here to rule out intracranial mass that has been causing her migraines and less likely a intracranial bleed including subarachnoid. Physical exam is not consistent with meningitis or encephalitis. She has no nuchal rigidity. She is afebrile. Neurologic exam is intact. CT of the brain reviewed by myself, no abnormality seen. Radiology read in agreement. Toradol added onto her migraine cocktail. Will reevaluate. Patient reevaluated and has complete resolution of her migraine as well as her photophobia. She has an appointment with her primary care doctor on the . I recommended that she return if she develops a migraine that she cannot control at home again or fever. Patient discharged from the Emergency Department. I do not feel that the patient's evaluation reveals any acute reason for admission at this time. I instructed them to either follow-up with their primary care physician or promptly return to the Emergency Department for reevaluation should symptoms worsen or new symptoms develop. I explained what symptoms would indicate the need to return to the emergency department. Shared decision making was used. The patient voiced understanding of the treatment plan and is ag reeable with it. Clinical impression: Headache History & Record Review Discussion w/independent historian: Patient and Family Radiography Diagnostic Testing: Clinical Impression(s) from Imaging Studies Brain CT 09/13/25 11:37 IMPRESSION: NO ACUTE FINDINGS Reading Location: [place] [id number] Discharge Plan Triage Chief Complaint: Headache ED Provider: Candis Marti Dx/Rx/DC Orders Prescriptions: No Action sumatriptan succinate 50 mg tablet 50 mg PO .COMPLEX Rx Instructions: 50 mg orally AT ONSET OF FRANCIS; ygouidn-okadqjsdjbfhe-seyiiyvq [Excedrin Migraine] 250-250-65 mg tablet 2 tab PO Q6H PRN (Reason: pain) Primary Care Provider: León Henao Referrals: León Henao MD [Primary Care Provider, Internal Medicine] Print Language: Colombian
[2025-09-13 13:41] VITALS: BP 116/75; PULSE 83; RESP 16; TEMP 36.7; O2SAT 98
== END 2025-09-13 13:45 | disposition home or self-care (01) ==
PROVIDERS: Emergency Provider Student in an Organized Health Care Education/Training Program; PCP Internal Medicine; Visit Provider Student in an Organized Health Care Education/Training Program
DX: R51.9 Headache, unspecified (principal); K21.9 Gastro-esophageal reflux disease without esophagitis
CPT/HCPCS: 70450; 96361; 96374; 96375; 99282